=== PATIENT | female | born 1930 | race Caucasian/White ===

== ENCOUNTER 2016-05-14 14:13 | Emergency (ER) ==
[2016-05-14 14:27] VITALS: BP 152/093
--- NOTE | 2016-05-14 14:53 | PROVIDER DOCUMENTATION ---
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 DENIES SYNCOPE,N,V,BLURRY VISION. Head Injury Location: reports: frontal Other injuries associated with incident:: reports: head Quality of Pain: reports: aching Severity: reports: mild Onset/Duration: reports: 1/2 hour ago Timing: reports: still present Method of Injury: reports: fell Any recent trauma/injury?: reports: minor Loss of Consciousness: no loss of consciousness Locality of Occurance: Home Similar Symptoms Previously?: No Recently seen or treated by another doctor?: No Review of Systems - Adult - REVIEW OF SYSTEMS - ADULT Constitutional: denies: chills, fever, fatique Eyes: reports: no symptoms reported Ears, Nose, Mouth & Throat: reports: see HPI. denies: ear pain, sinus problem, throat pain Cardiovascular: reports: no symptoms reported Respiratory: reports: no symptoms reported Gastrointestinal: reports: no symptoms reported Genitourinary: reports: no symptoms reported Musculoskeletal: reports: no symptoms reported Integumentary: reports: see HPI Neurological: denies: dizziness/vertigo, numbness, paresthesia Psychiatric: denies: anxiety, alcohol/drug dependence, depression Endocrine: reports: no symptoms reported Hematologic/Lymphatic: reports: no symptoms reported Allergic/Immunologic: reports: no symptoms reported All Other Systems: Reviewed and Negative Past History - Adult - PAST MEDICAL HISTORY-ADULT Review of Records: reports: Nursing Assessment Review Major Childhood Illnesses: reports: denies history Cardiovascular: reports: denies history Respiratory: reports: denies history Neurological: reports: CVA, dementia Other Conditions: reports: cataract/glaucoma - PRIOR SURGERIES/PROCEDURES Surgical/Procedure History: reports: hysterectomy, orthopedic (extremity), other (cataract removal ) - IMMUNIZATION STATUS Childhood Immunizations: See Nurse Assessment Flu Vaccine: See Nurse Assessment Physical Exam- Neurological - Physical Exam-Neuro Initial Vital Signs Reviewed: Yes General Appearance: appears well, alert, no apparent distress Eye Exam: bilateral eye: normal inspection, PERRL, EOMI HENMT: normocephalic/atraumatic, moist mucous membranes, normal ENT inspection, TMs normal, pharynx normal Head Injury: lacerations (1 1/2 INCH LAC LINEAR RIGHT FOREHEAD CLOSED). negative: active bleeding, Trimble's Sign, ecchymosis, flap, raccoon eyes Neck: non-tender, full range of motion, supple, normal inspection Respiratory: chest non-tender, lungs clear, normal breath sounds, no pleuratic chest pain, no respiratory distress, no accessory muscle use Cardiovascular: normal peripheral pulses, regular rate, rhythm, no edema, no gallop, no JVD, no murmur Abdominal Exam: normal bowel sounds, non tender, soft, no organomegaly, no pulsatile mass Lymphatic: no adenopathy Extremity: normal range of motion, non-tender, normal gait, normal inspection, no pedal edema, no calf tenderness, normal capillary refill, 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: normal hearing, normal speech, PERRL Coordination/Gait: normal finger to nose, normal gait, negative Romberg's sign Motor/Sensory: no motor deficit, no sensory deficit, no pronator drift, negative Babinski's sign 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, no motor/sensory deficits Integumentary: normal color, normal turgor, warm/dry Psych/Mental Status: AL, normal mood/affect, normal thought content, normal thought process, oriented x 3 Progress - PLAN OF CARE/RESULTS Progress/Plan/Lab Results: Orders Category Date Time Status CHEST-PORTABLE [RAD] Stat Exams 05/14/16 14:32 Ordered HEAD/C-SPINE W/O CONTRAST [CT] Stat Exams 05/14/16 14:32 Ordered Vital Signs - 24 hr 05/14/16 14:23 Temperature 97.6 F Pulse Rate 80 Respiratory 16 Rate Blood Pressure 152/093 O2 Sat by Pulse 98 Oximetry - CT/MRI 1 CT Study: Head Impression: Abnormal (NAP INTRACRANIALLY; ADVANCED DDD BUT NO FX OR OTHER DEFINITE ACUTE CSPINE INJURY) Procedures - LACERATION/WOUND REPAIR/FB Right Anterior Frontal Wound Location: Other: RIGHT FRONT FOREHEAD Wound Length: 1 1/2 IN Wound's Depth, Shape: superficial Wound Explored/Foreign Body: clean Irrigated with Saline?: Yes Prepped with: Kit Utilized Wound Repaired with: Dermabond Sterile Dressing Applied?: Yes Splint Applied?: No Sling Applied?: No Departure - Departure Time of Disposition Order: 15:21 DIAGNOSIS: Head injury Qualifiers: Encounter type: initial encounter Qualified Code(s): S09.90XA - Unspecified injury of head, initial encounter Fall Qualifiers: Encounter type: initial encounter Qualified Code(s): W19.XXXA - Unspecified fall, initial encounter Concussion Qualifiers: Encounter type: initial encounter Loss of consciousness presence/duration: without LOC Qualified Code(s): S06.0X0A - Concussion without loss of consciousness, initial encounter Disposition: HOME 01 Certified Medical Emergency: Emergent Condition: Stable Additional Instructions: ED Follow Up Instructions: You have been treated by a care provider in the Emergency Department. These instructions are being provided to you so you can have an understanding of how to care for yourself upon discharge. Upon discharge from the Emergency Department, you are responsible for making arrangements for follow-up care by a physician of your choice. Take all prescribed medications as directed. Return to the Emergency Department immediately for any new or worsening symptoms. You may call the Physician Referral phone number at [phone] to obtain a list of Physicians who are taking new patients. Referrals: Ellen Bentley MD [Primary Care Provider] - Attestation - Scribe Verification/Attestation Scribe:: Chantal Romero Acting as Scribe for:: Trinidad Elder Scribe documention review:: This chart was documented by a scribe and accurately reflects the service the provider performed and the decisions made by the provider.
--- NOTE | 2016-05-14 15:42 | Diag Imaging Result Document ---
PROCEDURE NAME: HEAD/C-SPINE W/O CONTRAST - 05/14/2016 HEAD AND C-SPINE WITHOUT CONTRAST: COMPARISON: 07/23/2014. FINDINGS: HEAD: There is extensive patchy low attenuation in the periventricular and subcortical white matter suggesting fairly advanced microangiopathy. There is a tiny chronic lacunar infarct involving the head of the caudate on the right. This was not present on the previous study but still appears to be chronic. There is no discrete intracranial mass, mass effect, or intracranial hemorrhage. There is no evidence of acute infarct given the limited sensitivity of CT versus MRI. There is no evidence of hydrocephalus. There is suggestion of minimal soft tissue edema at the forehead on the right. The calvaria is grossly intact. C-SPINE: There is extensive degenerative disk disease at virtually every cervical level with loss of disk space height and marginal osteophyte formation. This is stable. This is causing some degree of chronic central canal and neural foraminal narrowing at multiple levels. There is no evidence of fracture, subluxation, or intrinsic osseous lesion, otherwise. Surrounding soft tissues are essentially unremarkable. IMPRESSION: 1. Extensive chronic changes, but no evidence of acute intracranial pathology. 2. Extensive multilevel degenerative change, but no evidence of fracture or other definite acute C-spine injury.
[2016-05-14] MEDS ORDERED: DERMABOND ONE (15:50)
[2016-05-14] MEDS ORDERED: DERMABOND TOP ONE (15:53)
--- NOTE | 2016-05-14 16:48 | Diag Imaging Result Document ---
PROCEDURE NAME: CHEST-1 VIEW - 05/14/2016 SINGLE FRONTAL RADIOGRAPH OF THE CHEST: COMPARISON: 07/03/2014. FINDINGS: There is evidence of prior granulomatous disease, stable. The lungs are clear otherwise. There is no definite pleural fluid collection. Cardiac silhouette is unremarkable. IMPRESSION: No definite acute pathology.
== END 2016-05-14 16:12 | disposition home or self-care (01) ==
LOC: P.ED 14:13
DX: S01.81XA Laceration without foreign body of other part of head, initial encounter (principal); S06.0X0A Concussion without loss of consciousness, initial encounter; R51 Headache; M47.9 Spondylosis, unspecified; Z86.73 Personal history of transient ischemic attack (TIA), and cerebral infarction without residual deficits; W08.XXXA Fall from other furniture, initial encounter
CPT/HCPCS: 70450; 71010; 72125